=== PATIENT | female | born 1995 | race Caucasian/White ===

== ENCOUNTER 2016-11-10 10:32 | Emergency (ER) | payer OTHER ==
[~2016-11-10] VITALS: Wt 58.5 kg
[2016-11-10] MEDS ORDERED: predniSONE 20 MG TAB PO ONE (11:30)
[2016-11-10] MEDS ORDERED: DIPHENHYDRAMINE 50 MG INJ IM ONE (11:30)
[2016-11-10] MEDS ORDERED: PRED20TA PO (11:44)
[2016-11-10] MEDS ORDERED: CETI10CA PO (11:44)
--- NOTE | 2016-11-10 11:47 | ERD ---
ER Documentation Chief Complaint Date/Time DATE: 11/10/16 TIME: 11:45 Chief Complaint HIVES ALL OVER, ITCHING, NO SOB HPI This 20-year-old female complains of a itchy rash over her trunk and extremities since last night. Patient denies any new medications, new foods or known exposures. She denies any previous similar rash. She may have had some mild URI symptoms over the last few days. She has no fever, vomiting, abdominal pain, chest pain or shortness breath. ROS All systems reviewed and are negative except as per history of present illness. Medications Home Meds Active Scripts Prednisone* (Prednisone*) 20 Mg Tab, 40 MG PO DAILY for 4 Days, TAB Prov:MAL HERNANDEZ MD 11/10/16 Cetirizine Hcl* (Zyrtec*) 10 Mg Capsule, 10 MG PO DAILY, #10 TAB.CHEW Prov:MAL HERNANDEZ MD 11/10/16 PMhx/Soc Medical and Surgical Hx: pt denies Medical Hx, pt denies Surgical Hx Hx Alcohol Use: No Hx Substance Use: No Hx Tobacco Use: No Smoking Status: Never smoker Physical Exam Vitals Vital Signs Date Time Temp Pulse Resp B/P Pulse Ox O2 Delivery O2 Flow Rate FiO2 11/10/16 10:35 98.7 99 18 106/59 96 Physical Exam Const: [] Alert, [id number] per Head: Atraumatic Eyes: Normal Conjunctiva ENT: Normal External Ears, Nose and Mouth. TMs and oropharynx normal Neck: Full range of motion..~ No meningismus. Resp: Clear to auscultation bilaterally Cardio: Regular rate and rhythm, no murmurs Abd: Soft, non tender, non distended. Normal bowel sounds Skin: No petechiae or purpura. There are diffuse we will type lesions on the trunk and extremities and slightly on the face. There is no induration, vesicles. The lesions are blanching Back: No midline or flank tenderness Ext: No cyanosis, or edema Neur: Awake and alert Psych: Normal Mood and Affect Results 24 hrs Current Medications Medications (Trade) Dose Ordered Sig/Rashad Route PRN Reason Start Time Stop Time Status Last Admin Dose Admin Diphenhydramine HCl (Benadryl) 25 mg ONCE ONCE IM 11/10/16 11:30 11/10/16 11:31 DC 11/10/16 11:42 Prednisone (Prednisone) 60 mg ONCE ONCE PO 11/10/16 11:30 11/10/16 11:31 DC 11/10/16 11:42 Procedures/MDM Patient presents with signs and symptoms of acute urticaria without evidence of anaphylaxis, respiratory distress, cellulitis. She was given prednisone 60 mg of mouth will be treated with Zyrtec and prednisone at home. The patient was stable with no new complaints during the ER course. Clinically, there is no current evidence to suggest meningitis, sepsis, acute abdomen, pneumonia, acute coronary syndrome, pulmonary embolism, or any other emergent condition appearing to require further evaluation or hospitalization. The patient should certainly return for any new or worsening symptoms per the aftercare instructions. They should otherwise follow-up with her primary care doctor for reevaluation this week. Departure Diagnosis: Primary Impression: Acute urticaria Condition: Stable Patient Instructions: Tran Additional Instructions: Recheck for new or worsening symptoms or primary care doctor. MAL HERNANDEZ MD Nov 10, 2016 11:47
== END 2016-11-10 12:01 | disposition home or self-care (01) ==
LOC: FTE 10:32
DX: L50.9 Urticaria, unspecified (principal)
CPT/HCPCS: J1200; J7512; 96372

== ENCOUNTER 2017-10-12 12:19 | Emergency (ER) | END 2017-10-12 16:09 | disposition home or self-care (01) ==